=== PATIENT | female | born 1985 | race Hispanic/Latino ===

== ENCOUNTER → 2022-05-05 13:38 | Outpatient (CLI) | payer OTHER, SELFPAY ==
--- NOTE | 2022-05-05 13:45 | DI.CT.S_ITS ---
PROCEDURE: CT SINUS SCREEN WO CON INDICATIONS: NASAL CONGESTION/PANSINUSITIS TECHNIQUE: Noncontrast 3.0 mm axial images acquired from the frontal sinuses to the mid-sella, with coronal and sagittal reformats. For radiation dose reduction, the following was used: automated exposure control, adjustment of mA and/or kV according to patient size. COMPARISON: None. FINDINGS: Image quality: Excellent. Maxillary Sinuses: No bony remodeling or destruction. Sinuses are clear. Ethmoid Air Cells: No bony remodeling or destruction. Sinuses are clear. Sphenoid Sinuses: No bony remodeling or destruction. Sinuses are clear. Frontal Sinuses: No bony remodeling or destruction. Sinuses are clear. Ostiomeatal Complexes: Ostiomeatal complexes are patent. No Patience cells. Miscellaneous: Visualized intra-orbital contents are normal. There is septal deviation to the left. 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 IMPRESSION: 1. No sinus disease. The ostiomeatal complexes are patent. 2. Septal deviation to the left. 3. Indu bullosa and both middle turbinates. Dictated by: Sergei Wills M.D. on 05/05/2022 at 13:41 Approved by: Sergei Wills M.D. on 05/05/2022 at 13:45
== END ==
PROVIDERS: PCP Nurse Practitioner Family; Referring Provider Otolaryngology; Visit Provider Otolaryngology
DX: J32.4 Chronic pansinusitis (principal); J34.2 Deviated nasal septum; J34.3 Hypertrophy of nasal turbinates; R09.81 Nasal congestion; R44.8 Other symptoms and signs involving general sensations and perceptions
CPT/HCPCS: 70486

== ENCOUNTER 2025-01-30 23:32 | Emergency (ER) | payer OTHER, SELFPAY ==
[2025-01-30 23:38] VITALS: BP 121/59; PULSE 72; RESP 16; TEMP 36.9; O2SAT 96; BMI 27.0
--- NOTE | 2025-01-31 03:45 | PC.NURSE ---
pt c/o left sided numbness and tingling x months pt has an appt with neurology in February. now having right sided numbness and tingling, moves all extremities without any difficulties, ambulates with steady gait
--- NOTE | 2025-01-31 03:52 | ED.NEUROSD ---
HPI - Neuro Symptoms/Deficit General Chief Complaint: Neuro Symptoms/Deficit Stated Complaint: Rt side numbness, neck pressure Time Seen by Provider: 01/31/25 01:40 Source: patient Mode of arrival: Ambulatory Limitations: no limitations History of Present Illness HPI Narrative: 39-year-old female with complaint of right-sided paresthesias, weakness and pressure of her face, upper extremity and leg, symptoms started . She was had left-sided numbness, tingling weakness sensations on and off for several months. Patient has not had any fevers. No sudden vision changes. She feels like the sort of some pressure a under her eye. Patient has not had any chest pain or shortness of breath tonight. No nausea or vomiting. No bowel or bladder incontinence. No dysuria urgency or frequency. No diarrhea or constipation. She has been able to ambulate and move normally but states it feels different and weaker. She was on atorvastatin daily, no other prescription medication. Patient reports an allergy to shellfish. No tobacco, alcohol or recreational drugs. She was seen her primary care for this is scheduled to see Neurology in February. Presents today because new change on the right side. On Anticoagulants: No Related Data Home Medications Medication Instructions Recorded Confirmed atorvastatin 10 mg tablet 10 mg PO DAILY 01/30/25 01/30/25 Allergies Allergy/AdvReac Type Severity Reaction Status Date / Time shellfish derived Allergy Hives Verified 01/30/25 23:44 Review of Systems Review of Systems ROS Unobtainable: All systems reviewed & are unremarkable except as noted in HPI and below Hematologic/Lymphatic On Anticoagulants: No Patient History Social History Smoking Status: Never smoker Smoking Status: Never smoker Exam Narrative Exam Narrative: GEN: well nourished, well appearing female, alert and oriented x 3, patient appears to be in mild distress. HEENT: Atraumatic, pupils are equal round reactive to light, extraocular movements are intact, nares are clear, there is no conjunctival pallor. Throat is clear without any exudates, erythema, tonsillar enlargement or uvular deviation, no facial droop HEART: Regular rate and rhythm without murmur, clicks, rubs. LUNGS:Lungs clear to auscultation, no wheezes, rales, crackles, chest moves symmetrically ABD:bowel sounds normal, soft, non-tender, no guarding, rebound, rigidity, no masses noted, no hepatosplenomegaly MSCL: Non-tender, no muscle atrophy, muscles strength 5/5 upper and lower extremities, full range of motion, normal gait NEURO:CN 2-12 intact, sensation normal, reflexes 2/4 upper and lower extremities. finger nose finger test normal, heel florez test normal SKIN: No rash, erythema or other skin changes noted Initial Vital Signs Initial Vital Signs: Vital Signs Temperature 98.4 F 01/30/25 23:38 Pulse Rate 72 01/30/25 23:38 Respiratory Rate 16 01/30/25 23:38 Blood Pressure 121/59 L 01/30/25 23:38 Pulse Oximetry 96 01/30/25 23:38 Oxygen Delivery Method Room Air 01/30/25 23:38 Course Orders Ordered: ED Orders 01/31/25 04:05 EKG-12 Lead Stat 01/31/25 04:09 EKG-12 Lead Stat 01/31/25 04:15 CT head/brain wo con Stat 01/31/25 04:20 CBC Auto Diff [Complete Blood Count AUTO DIFF] Stat CMP [Comprehensive Metabolic Panel] Stat Discontinued Medications Potassium Chloride (Potassium Chloride 20 Meq Tab) 40 meq PO NOW ONE Stop: 01/31/25 05:01 Last Admin: 01/31/25 05:10 Dose: 40 meq Documented By: HEATHER Vital Signs Vital signs: Vital Signs - 8 hr 01/30/25 23:38 01/31/25 04:31 01/31/25 04:32 Temperature 98.4 F Pulse Rate 72 66 62 Respiratory Rate 16 22 18 Blood Pressure 121/59 L 114/68 Pulse Oximetry 96 100 100 Oxygen Delivery Method Room Air Room Air 01/31/25 05:00 01/31/25 05:00 Temperature Pulse Rate 64 Respiratory Rate 18 Blood Pressure 122/73 Pulse Oximetry 100 Oxygen Delivery Method MDM - Neuro Symptoms/Deficit Lab Data 01/31/25 04:20 01/31/25 04:20 Labs: Lab Results 01/31/25 Range/Units 04:20 WBC 5.4 (4.5-11.0) X10^3/uL RBC 4.14 (4.0-5.2) X10^6/uL Hgb 12.6 (12.0-16.0) g/dL Hct 37.2 (36-46) % MCV 89.9 (80-100) fL MCH 30.4 (26-34) PG MCHC 33.8 (30-36) % RDW 13.1 (11.6-14.8) % Plt Count 182 (150-400) X10^3/uL Neut % (Auto) 55.1 (50-75) % Lymph % (Auto) 36.0 (25-40) % Metcalfe % (Auto) 7.7 (3-14) % Eos % (Auto) 0.7 L (2-4) % Baso % (Auto) 0.5 (0-2) % Neut # (Auto) 3000 (3768-7309) /uL Lymph # (Auto) 2000 (4678-6672) /uL Metcalfe # (Auto) 400 (0-900) /uL Eos # (Auto) 0 (0-450) /uL Baso # (Auto) 0 (0-100) /uL Sodium 141 (137-145) mmol/L Potassium 3.3 L (3.4-5.1) mmol/L Chloride 105 (98-107) mmol/L Carbon Dioxide 23 (22-32) mmol/L BUN 9 (7-17) mg/dL Creatinine 0.72 (0.52-1.04) mg/dL Estimated GFR > 60 (>60) mL/min BUN/Creatinine Ratio 12.5 (6-22) Glucose 102 H (70-100) mg/dL Calcium 9.5 (8.4-10.2) mg/dL Total Bilirubin 0.7 (0.2-1.3) mg/dL AST 26 (14-36) IU/L ALT 24 (<35) IU/L Alkaline Phosphatase 62 (38-126) U/L Total Protein 8.5 H (6.3-8.2) g/dL Albumin 5.0 (3.5-5.0) g/dL Globulin 3.5 (1.7-4.1) g/dL Albumin/Globulin Ratio 1.4 (1.0-2.8) ECG Data Attestation: I personally reviewed and interpreted this ECG as follows: Interpretation: Sinus rhythm rate of 60, OK 112 QRS is 74 QTC of 420, no acute ST changes. MDM Narrative Medical decision making narrative: 39-year-old female with longstanding numbness tingling weakness sensation in the left side is supposed to follow up with Neurology in February has not seen them yet developed similar symptoms on the right side in the face arm and lower extremity. Patient has a normal neurologic exam with no drift, weakness or other changes. Head CT shows no acute intracranial findings. Labs normal CBC. CMP shows potassium of 3.3 this was replaced orally, glucose is 102 otherwise normal except for total protein is 8.5. EKG sinus rhythm Patient has a mild hypokalemia, patient's neurologic exam is normal plan to have her follow up with Neurology at her scheduled appointment in February. Discharge Plan Departure Patient Disposition: Home Clinical Impression: Paresthesias, Hypokalemia Activity Restrictions/Additional Instructions: Follow up with primary care, thanks very appropriate to follow up with Neurology at your scheduled appointment in February. Your potassium is slightly low, sometimes this can cause some cramping or discomfort but isn't a likely source of your current symptoms. Continue your home medications as prescribed. Please return if you have sudden new changes, severe headaches, fevers, difficulty with speech or movement, new weakness, loss of sensation, loss of bowel or bladder control or other new or concerning changes. Prescriptions: No Action atorvastatin 10 mg Tablet 10 mg PO DAILY Referrals: Britt Bernal ARNP [Primary Care Provider] - Stand Alone Forms: Patient Portal/API/Survey
--- NOTE | 2025-01-31 04:15 | DI.CT.S_ITS ---
PROCEDURE: CT HEAD/BRAIN WO CON INDICATIONS: numbness L side of body 2D, was on R side before for months TECHNIQUE: Noncontrast 4.5 mm thick angled axial sections acquired from the foramen magnum to the vertex, with coronal and sagittal reformats. For radiation dose reduction, the following was used: automated exposure control, adjustment of mA and/or kV according to patient size. COMPARISON: None. FINDINGS: Image quality: Diagnostic. CSF spaces: Basal cisterns are patent. No extra-axial fluid collections. Ventricles are normal in size and shape. Brain: No midline shift. No intracranial masses or hemorrhage. Alvarez-white matter interface is normal. Skull and face: Calvarium and visualized facial bones are intact, without suspicious lesions. Sinuses: Visualized sinuses and mastoids are clear. IMPRESSION: No acute intracranial pathology. Findings are concordant with preliminary interpretation provided by [facility]. Dictated by: Ventura Rios M.D. on 01/31/2025 at 7:20 Approved by: Ventura Rios M.D. on 01/31/2025 at 7:20
--- NOTE | 2025-01-31 04:16 | EKG_ITS ---
[place] [id number] [place] [id number] Test Date: 2025-01-31 Pat Name: Glenna PosadayuvalDepartment: [facility]: Gender: Female Pathology Assistant: SITA : 1985 Requested By: Order Number: [id number] Reading MD: Sherwin Jorge Measurements Intervals [place] Rate: 60 P: 23 [place]: 112 QRS: 58 QRSD: 74 T: 43 QT: 420 QTc: 420 Interpretive Statements Normal sinus rhythm Electronically Signed On 02-08-2025 18:50:39 PDT by Sherwin Jorge
[2025-01-31 04:28] LABS: Add Manual Diff / Slide Review NO; Basophils Absolute Auto 0 /uL (0-100); Basophils Percent Auto 0.5 % (0-2); Eosinophils Absolute Auto 0 /uL (0-450); Eosinophils Percent Auto 0.7 % (2-4); Hematocrit 37.2 % (36-46); Hemoglobin 12.6 g/dL (12.0-16.0); Lymphocytes Absolute Auto 2000 /uL (1100-4500); Mean Corpuscular HGB Conc 33.8 % (30-36); Mean Corpuscular Hemoglobin 30.4 PG (26-34); Mean Corpuscular Volume 89.9 fL (80-100); Monocytes Absolute Auto 400 /uL (0-900); Monocytes Percent Auto 7.7 % (3-14); Neutrophils Absolute Auto 3000 /uL (1500-7000); Neutrophils Percent Auto 55.1 % (50-75); Platelet Count 182 X10^3/uL (150-400); Red Blood Cell Count 4.14 X10^6/uL (4.0-5.2); Red Cell Distribution Width 13.1 % (11.6-14.8); White Blood Cell Count 5.4 X10^3/uL (4.5-11.0)
[2025-01-31 04:31] VITALS: PULSE 66; RESP 22; O2SAT 100
[2025-01-31 04:32] VITALS: BP 114/68; PULSE 62; RESP 18; O2SAT 100
[2025-01-31 04:42] LABS: Alanine Aminotransferase 24 IU/L (<35); Albumin Globulin Ratio 1.4 (1.0-2.8); Alkaline Phosphatase 62 U/L (38-126); Aspartate Aminotransferase 26 IU/L (14-36); BUN Creatinine Ratio 12.5 (6-22); Bilirubin Total 0.7 mg/dL (0.2-1.3); Blood Urea Nitrogen 9 mg/dL (7-17); Calcium 9.5 mg/dL (8.4-10.2); Carbon Dioxide 23 mmol/L (22-32); Chloride 105 mmol/L (98-107); Estimated Glomerular Filt Rate > 60 mL/min (>60); Globulin 3.5 g/dL (1.7-4.1); Glucose 102 mg/dL (70-100); HEMOLYSIS < 15 (0-50); Potassium 3.3 mmol/L (3.4-5.1); Sodium 141 mmol/L (137-145); Total Protein 8.5 g/dL (6.3-8.2)
[2025-01-31 05:00] VITALS: BP 122/73; PULSE 64; RESP 18; O2SAT 100
[2025-01-31] MEDS: POTASSIUM CHLORIDE 20 MEQ TAB 40 MEQ PO (05:10)
== END 2025-01-31 05:15 | disposition home or self-care (01) ==
PROVIDERS: Emergency Provider Emergency Medicine; PCP Nurse Practitioner Family
DX: R20.2 Paresthesia of skin (principal); E87.6 Hypokalemia; R20.0 Anesthesia of skin; R53.1 Weakness
CPT/HCPCS: 36415; 70450; 80053; 85025; 93005; 99283; 99284